=== PATIENT | female | born 1960 | race Caucasian/White ===

== ENCOUNTER 2017-12-09 20:27 | Emergency (ER) | payer SELFPAY ==
[~2017-12-09] VITALS: Ht 157.5 cm; Wt 79.8 kg
[2017-12-09] MEDS ORDERED: PROCHLORPERAZINE 5 MG/ML, 2ML IVPush ONE (21:00)
[2017-12-09] MEDS ORDERED: DIPHENHYDRAMINE 50 MG/ML, 1ML IVPush ONE (21:00)
[2017-12-09] MEDS ORDERED: SODIUM CHLORIDE 0.9% 1,000ML IVBOLUS ONE ×2 (21:00→22:00)
[2017-12-09] MEDS ORDERED: DIPHENHYDRAMINE 50 MG/ML, 1ML ONE (22:10)
[2017-12-09] MEDS ORDERED: PROCHLORPERAZINE 5 MG/ML, 2ML ONE (22:10)
[2017-12-09 22:27] LABS: BASOPHILS # (AUTO) 0.01 x10^3/uL (0-0.1); BASOPHILS % (AUTO) 0 % (0-1); EOSINOPHILS # (AUTO) 0.06 x10^3/uL (0-0.4); EOSINOPHILS % (AUTO) 1 % (1-7); LYMPHOCYTES # (AUTO) 1.65 x10^3/uL (1-3.4); LYMPHOCYTES % (AUTO) 21 % (22-44); MD NO; MEAN CORPUSCULAR HEMOGLOBIN 28.6 pg (27.0-34.8); MEAN CORPUSCULAR HGB CONC 33.5 g/dL (32.4-35.8); MEAN CORPUSCULAR VOLUME 85.4 fL (80-100); MONOCYTES # (AUTO) 0.47 x10^3/uL (0.2-0.8); MONOCYTES % (AUTO) 6 % (2-9); NEUTROPHILS # (AUTO) 5.74 x10^3/uL (1.8-6.8); NEUTROPHILS % (AUTO) 73 % (42-75); PLATELET COUNT 202 x10^3/uL (130-400); RED BLOOD COUNT 4.79 x10^6/uL (3.82-5.3); RED CELL DISTRIBUTION WIDTH 14.9 % (9.6-15.2)
[2017-12-09 22:38] LABS: ALBUMIN 3.7 g/dL (3.4-5.0); ANION GAP 8 mmol/L (5-15); CALCIUM 8.4 mg/dL (8.5-10.1); CHLORIDE 109 mmol/L (98-107); CREATININE 0.53 mg/dL (0.55-1.02)
[2017-12-09] MEDS ORDERED: LORazepam 1MG TABLET ONE (23:46)
[2017-12-09 23:59] VITALS: BP 118/60
[2017-12-10] MEDS ORDERED: LORazepam 1MG TABLET PO ONE
== END 2017-12-10 00:02 | disposition home or self-care (01) ==
LOC: ED 23:31
DX: R42 Dizziness and giddiness (principal); R51 Headache; G40.909 Epilepsy, unspecified, not intractable, without status epilepticus; E11.9 Type 2 diabetes mellitus without complications
CPT/HCPCS: 36415; 70450; 80048; 82040; 85025; 96361; 96374; 96375; 99285; J0780; J1200; J7030

== ENCOUNTER → 2018-04-29 | Outpatient (CLI) | payer OTHER | END | disposition home or self-care (01) | LOC: CFH 15:56 | PROVIDERS: ATTEND Nurse Practitioner Family | DX: G40.219 Localization-related (focal) (partial) symptomatic epilepsy and epileptic syndromes with complex partial seizures, intractable, without status epilepticus (principal) | CPT/HCPCS: 70551 ==

== ENCOUNTER 2018-12-11 10:08 | Inpatient (IN) | payer MEDICAID, OTHER ==
[~2018-12-11] VITALS: Ht 157.5 cm; Wt 86.2 kg
--- NOTE | 2018-12-11 10:24 | NUR ---
PT BIB [facility] FOR ABNORMAL POST-ICTAL STATE PER FAMILY AFTER SEIZURE THIS MORNING AT 0900. PER EMS, PT WAS GCS 8 AND EMOTIONAL AND INCONSOLABLE FOR APPROX 1.5 HOURS WHEN IV WAS ESTABLISHED AND 1 MG VERSED WAS ADMINISTERED. MEDICATION WAS INEFFECTIVE AND ANOTHER 1MG OF VERSED WAS ADMINISTERED. PT THEN BECAME DROWSY AND RESPONSIVE ONLY TO PAIN BUT ABLE TO ADEQUATELY PROTECT AIRWAY. PT ARRIVES IN SAME STATE. PT CONNECTED TO MONITORS. VSS. DR. GREENWOOD TO BS FOR ASSESSMENT. ORDERS RECEIVED. EKG COPLETE. AWAITING LAB DRAW.
[2018-12-11] MEDS ORDERED: ESCI10TA PO (10:41)
[2018-12-11] MEDS ORDERED: MELO15TA24 PO (10:41)
[2018-12-11] MEDS ORDERED: LAMO150T2 PO (10:41)
[2018-12-11] MEDS ORDERED: METFORMIN (10:41)
--- NOTE | 2018-12-11 10:47 | NUR ---
family at bs able to provide medications. med rec completed wtih family input. pt continues to guard when arm drop performed by edmd and continues to clench jaw when attempting to take temperature. vs remain stable. no requests at this time. awaiting orders.
--- NOTE | 2018-12-11 11:09 | NUR ---
pt mental state unchaged. vss. socks provided per family request. no other needs at this time.
--- NOTE | 2018-12-11 11:57 | NUR ---
pt mental state unchaged. vss. lab at for draw. no needs at this time. awaiting resutls.
[2018-12-11 12:33] LABS: ALBUMIN 3.9 g/dL (3.4-5.0); ANION GAP 8 mmol/L (5-15); CALCIUM 8.9 mg/dL (8.5-10.1); CHLORIDE 109 mmol/L (98-107); CREATININE 0.55 mg/dL (0.55-1.02)
--- NOTE | 2018-12-11 12:47 | NUR ---
pt mental state unchaged. vss. no needs at this time. ua collected via straight cath and sent to lab. awaiting results.
[2018-12-11 12:55] LABS: SALICYLATE LEVEL < 1.7 mg/dL (2.8-20.0)
[2018-12-11 12:57] LABS: BASOPHILS # (AUTO) 0.02 x10^3/uL (0-0.1); BASOPHILS % (AUTO) 0 % (0-1); EOSINOPHILS # (AUTO) 0.16 x10^3/uL (0-0.4); EOSINOPHILS % (AUTO) 2 % (1-7); LYMPHOCYTES # (AUTO) 2.65 x10^3/uL (1-3.4); LYMPHOCYTES % (AUTO) 36 % (22-44); MD NO; MEAN CORPUSCULAR HEMOGLOBIN 28.7 pg (27.0-34.8); MEAN CORPUSCULAR HGB CONC 32.6 g/dL (32.4-35.8); MEAN CORPUSCULAR VOLUME 88.1 fL (80-100); MEAN PLATELET VOLUME 8.9 fL (7.4-10.4); MONOCYTES # (AUTO) 0.55 x10^3/uL (0.2-0.8); MONOCYTES % (AUTO) 8 % (2-9); NEUTROPHILS # (AUTO) 3.95 x10^3/uL (1.8-6.8); NEUTROPHILS % (AUTO) 54 % (42-75); PLATELET COUNT 226 x10^3/uL (130-400); RED BLOOD COUNT 4.63 x10^6/uL (3.82-5.3); RED CELL DISTRIBUTION WIDTH 14.7 % (9.6-15.2)
[2018-12-11 13:15] LABS: AMPHETAMINE SCREEN, URINE Negative (Negative); BARBITURATE SCREEN, URINE Negative (Negative); BENZODIAZEPINE SCREEN, URINE Positive (Negative); CANNABINOID SCREEN, URINE Negative (Negative); COCAINE SCREEN, URINE Negative (Negative); METHADONE SCREEN, URINE Negative (Negative); OPIATE SCREEN, URINE Negative (Negative)
--- NOTE | 2018-12-11 13:47 | NUR ---
pt mental state unchaged. vss. no needs at this time. plan to admit. ct head complete. awaiting results and room assignment.
--- NOTE | 2018-12-11 14:02 | NUR ---
BREAK RN FOR PRIMARY RN LINDA. PT RESTING WITH EYES CLOSED, RESP REGULAR EVEN, UNLABORED. PULSE OX 92% ON RA. VSS. SR ON MONITOR. AWAITING ROOM ON FLOOR FOR ADMISSION TO HOSPITAL. FAMILY AT BEDSIDE. FAMILY MEMBERS PROVIDED WARM BLANKETS AND REFRESHMENTS PER REQUEST. CALL LIGHT IN REACH. FALL PRECAUTIONS IN PLACE.
--- NOTE | 2018-12-11 14:12 | NUR ---
BREAK RN. REPORT AND CARE BACK TO PRIMRY RODERICK MCKEON
--- NOTE | 2018-12-11 15:04 | NUR ---
report to henry iniguez. pt ready for transport.
[2018-12-11 15:33] VITALS: BP 115/79
[2018-12-11] MEDS ORDERED: ACETAMINOPHEN 325 MG TABLET ONE (16:47)
[2018-12-11] MEDS: ACETAMINOPHEN 325 MG TABLET PO PRN (16:50)
[2018-12-11] MEDS ORDERED: ENALAPRILAT 1.25 MG/ML, 2ML IVPush PRN (17:00)
[2018-12-11] MEDS ORDERED: hydrALAzine 20 MG/ML, 1ML IVPush PRN (17:00)
[2018-12-11] MEDS: SODIUM CHLORIDE 0.9% 1,000 ML IV SCH (17:20)
[2018-12-11] MEDS: HEPARIN 5,000 UNITS/ML, 1ML SQ SCH (17:20)
[2018-12-11 17:53] LABS: HEMOGLOBIN A1C 8.2 % (4.2-6.3)
[2018-12-11 19:46] VITALS: BP 107/62
[2018-12-12] MEDS: HEPARIN 5,000 UNITS/ML, 1ML SQ SCH ×2 (01:15→08:25)
[2018-12-12 01:43] VITALS: BP 121/75
[2018-12-12 06:13] LABS: BASOPHILS # (AUTO) 0.02 x10^3/uL (0-0.1); BASOPHILS % (AUTO) 0 % (0-1); EOSINOPHILS # (AUTO) 0.16 x10^3/uL (0-0.4); EOSINOPHILS % (AUTO) 3 % (1-7); LYMPHOCYTES # (AUTO) 2.49 x10^3/uL (1-3.4); LYMPHOCYTES % (AUTO) 41 % (22-44); MD NO; MEAN CORPUSCULAR HEMOGLOBIN 29.5 pg (27.0-34.8); MEAN CORPUSCULAR HGB CONC 33.3 g/dL (32.4-35.8); MEAN CORPUSCULAR VOLUME 88.3 fL (80-100); MEAN PLATELET VOLUME 9.3 fL (7.4-10.4); MONOCYTES % (AUTO) 8 % (2-9); NEUTROPHILS # (AUTO) 2.98 x10^3/uL (1.8-6.8); NEUTROPHILS % (AUTO) 48 % (42-75); PLATELET COUNT 221 x10^3/uL (130-400); RED BLOOD COUNT 4.55 x10^6/uL (3.82-5.3); RED CELL DISTRIBUTION WIDTH 14.4 % (9.6-15.2)
[2018-12-12 06:20] LABS: ANION GAP 5 mmol/L (5-15); CALCIUM 8.6 mg/dL (8.5-10.1); CHLORIDE 110 mmol/L (98-107); CREATININE 0.61 mg/dL (0.55-1.02)
[2018-12-12 07:14] VITALS: BP 115/73
[2018-12-12] MEDS: SODIUM CHLORIDE 0.9% 1,000 ML IV SCH (08:25)
[2018-12-12] MEDS: ACETAMINOPHEN 325 MG TABLET PO PRN (08:42)
[2018-12-12] MEDS ORDERED: LAMOTRIGINE 25 MG TABLET PO SCH (10:30)
[2018-12-12] MEDS ORDERED: MELOXICAM 15 MG TABLET PO SCH (10:30)
[2018-12-12] MEDS ORDERED: ESCITALOPRAM 10MG TABLET PO SCH (10:30)
[2018-12-12 12:32] VITALS: BP 102/65
== END 2018-12-12 16:35 | disposition home or self-care (01) | DRG 101 ==
LOC: ED 12:45 → 4WST 14:24 → DCLOUNGE 12-12 16:23
PROVIDERS: ADMIT Internal Medicine; ATTEND Internal Medicine
DX: G40.909 Epilepsy, unspecified, not intractable, without status epilepticus (principal); E11.9 Type 2 diabetes mellitus without complications; F43.0 Acute stress reaction; F44.4 Conversion disorder with motor symptom or deficit; F43.10 Post-traumatic stress disorder, unspecified; I10 Essential (primary) hypertension
CPT/HCPCS: 36415; 70450; 80048; 80307; 82040; 82962; 83036; 83605; 83735; 84100; 85025; 93005; G0378; J1644; J7030

== ENCOUNTER 2019-01-06 10:08 | Emergency (ER) | payer MEDICAID ==
[~2019-01-06] VITALS: Ht 157.5 cm; Wt 84.6 kg
[2019-01-06 11:57] VITALS: BP 107/68
== END 2019-01-06 12:00 | disposition home or self-care (01) ==
LOC: ED 11:43
DX: M26.622 Arthralgia of left temporomandibular joint (principal); E11.9 Type 2 diabetes mellitus without complications; F32.9 Major depressive disorder, single episode, unspecified; F41.1 Generalized anxiety disorder
CPT/HCPCS: 70100; 99283

== ENCOUNTER 2019-08-11 09:25 | Emergency (ER) | payer MEDICAID ==
[~2019-08-11] VITALS: Ht 152.4 cm; Wt 83.7 kg
[~2019-08-11 09:25] MED LIST: ESCI10TA PO; LAMO150T4 PO; MELO15TA24 PO; METFORMIN
[2019-08-11 10:03] VITALS: BP 106/67
--- NOTE | 2019-08-11 10:52 | NUR ---
NA from kevin
--- NOTE | 2019-08-11 11:04 | NUR ---
to rm 5 via w/c
--- NOTE | 2019-08-11 11:18 | NUR ---
right foot in boot with increasing pain since intial injury when she fell
== END 2019-08-11 11:33 ==
LOC: ED 11:27
DX: S92.114A Nondisplaced fracture of neck of right talus, initial encounter for closed fracture (principal); E11.9 Type 2 diabetes mellitus without complications; G40.909 Epilepsy, unspecified, not intractable, without status epilepticus; W18.30XA Fall on same level, unspecified, initial encounter; Y93.89 Activity, other specified; Y92.009 Unspecified place in unspecified non-institutional (private) residence as the place of occurrence of the external cause; Y99.8 Other external cause status
CPT/HCPCS: 99284

== ENCOUNTER 2019-08-16 16:47 | Emergency (ER) | payer MEDICAID ==
[~2019-08-16] VITALS: Ht 154.9 cm; Wt 83.6 kg
--- NOTE | 2019-08-16 17:01 | NUR ---
Pt ambulatory to bathroom and back to bed without difficulty.
--- NOTE | 2019-08-16 17:05 | NUR ---
Dr. Stuart at bedside to evaluate pt. Pt c/o R flank pain x3 hours with N/V. Pt extremely restless, tearful, appears in a lot of pain. Pt placed in gown and positioned for comfort in bed. Continuous oxygen and BP Monitors applied, all safety measures observed. Pt's daughter at bedside, supportive.
[2019-08-16] MEDS ORDERED: SODIUM CHLORIDE 0.9% 1,000 ML IV ONE (17:08)
[2019-08-16] MEDS ORDERED: HYDROmorphone 1 MG/ML, 1ML INJ ONE ×2 (17:09→17:52)
[2019-08-16] MEDS ORDERED: ONDANSETRON 2MG/ML, 2ML ONE ×3 (17:10→19:27)
[2019-08-16] MEDS: HYDROmorphone 2 MG/ML, 1ML IVPush PRN ×2 (17:16→17:54)
[2019-08-16] MEDS ORDERED: METF500T17 PO (17:24)
--- NOTE | 2019-08-16 17:25 | NUR ---
Pt medicated per MAR for pain and nausea. Provided warm blanket for comfort. Pt denies other needs.
--- NOTE | 2019-08-16 17:29 | NUR ---
Pt to CT via [facility].
[2019-08-16] MEDS ORDERED: ONDANSETRON 2MG/ML, 2ML IVPush ONE ×2 (17:30→19:30)
[2019-08-16] MEDS ORDERED: SODIUM CHLORIDE FLUSH 10ML SYR IVF ONE (17:30)
[2019-08-16 17:31] LABS: BASOPHILS # (AUTO) 0.07 x10^3/uL (0-0.1); BASOPHILS % (AUTO) 1 % (0-1); EOSINOPHILS # (AUTO) 0.25 x10^3/uL (0-0.4); EOSINOPHILS % (AUTO) 2 % (1-7); LYMPHOCYTES % (AUTO) 34 % (22-44); MD NO; MEAN CORPUSCULAR HEMOGLOBIN 28.5 pg (27.0-34.8); MEAN CORPUSCULAR HGB CONC 33.1 g/dL (32.4-35.8); MEAN CORPUSCULAR VOLUME 85.9 fL (80-100); MEAN PLATELET VOLUME 9.1 fL (7.4-10.4); MONOCYTES # (AUTO) 0.77 x10^3/uL (0.2-0.8); MONOCYTES % (AUTO) 7 % (2-9); NEUTROPHILS # (AUTO) 6.62 x10^3/uL (1.8-6.8); NEUTROPHILS % (AUTO) 57 % (42-75); PLATELET COUNT 289 x10^3/uL (130-400); RED BLOOD COUNT 4.92 x10^6/uL (3.82-5.3); RED CELL DISTRIBUTION WIDTH 14.4 % (9.6-15.2)
[2019-08-16 17:41] LABS: ANION GAP 8 mmol/L (5-15); CALCIUM 9.3 mg/dL (8.5-10.1); CHLORIDE 106 mmol/L (98-107); CREATININE 0.86 mg/dL (0.55-1.02)
[2019-08-16 17:49] LABS: ALANINE AMINOTRANSFERASE 41 U/L (12-78); ALKALINE PHOSPHATASE 141 U/L (45-117); BILIRUBIN,TOTAL 0.2 mg/dL (0.2-1.0); TOTAL PROTEIN 8.9 g/dL (6.4-8.2)
--- NOTE | 2019-08-16 17:54 | NUR ---
Pt back from CT, medicated for continued 5/10 R flank pain per MAR. Pt denies other needs.
[2019-08-16] MEDS ORDERED: KETOROLAC 30 MG/1 ML IVPush ONE (18:00)
[2019-08-16] MEDS ORDERED: KETOROLAC 30 MG/1 ML ONE (18:02)
--- NOTE | 2019-08-16 18:03 | NUR ---
Pt medicated per AUG. Dr. Stuart at bedside to discuss POC with pt.
[2019-08-16 18:04] LABS: MICROSCOPIC INDICATED
[2019-08-16 18:05] LABS: CULTURE INDICATED? YES
[2019-08-16] MEDS ORDERED: CEFTRIAXONE PMX 1GM/50ML 50 ML IV ONE (18:30)
--- NOTE | 2019-08-16 18:35 | NUR ---
Pt with continued nausea and one episode emesis. Dr. Stuart at bedside to speak with pt. Orders received for 4mg Zofran IVP. Pt medicated per order. Pt straight cathed per order, tolerated well. Urine sample obtained, labeled at bedside, walked to lab. Pt positioned for comfort in bed, denies other needs.
--- NOTE | 2019-08-16 18:36 | NUR ---
Pt states R flank pain improved after medications, 3/10.
[2019-08-16] MEDS ORDERED: CEFTRIAXONE PMX 1GM/50ML 50 ML ONE (18:41)
--- NOTE | 2019-08-16 19:00 | NUR ---
Received reportand assumed patient care. Patient resting with call light at bedside. Awaiting urinalysis.
[2019-08-16 19:01] LABS: MICROSCOPIC AUTO
[2019-08-16 19:06] LABS: CULTURE INDICATED? NO
[2019-08-16 20:11] VITALS: BP 102/47
== END 2019-08-16 20:23 | disposition home or self-care (01) ==
LOC: ED 20:00
DX: N20.1 Calculus of ureter (principal); N23 Unspecified renal colic; N39.0 Urinary tract infection, site not specified; E11.9 Type 2 diabetes mellitus without complications
CPT/HCPCS: 36415; 51701; 74176; 80053; 81001; 85025; 87086; 96365; 96375; 96376; 99285; J0696; J1170; J1885; J2405; J7030; 96374; P9612

== ENCOUNTER 2019-09-13 17:11 | Emergency (ER) | payer MEDICAID ==
[~2019-09-13] VITALS: Ht 154.9 cm; Wt 82.4 kg
[~2019-09-13 17:11] MED LIST changes: +METF500T17 PO
--- NOTE | 2019-09-13 17:43 | NUR ---
GROUNDS CARETAKER: PT TO ROOM FROM LOBBY
--- NOTE | 2019-09-13 17:53 | NUR ---
pt voided prior to coming back to room. given ua cup. call patel in reach. as
--- NOTE | 2019-09-13 18:17 | NUR ---
brent in room for eval. as
[2019-09-13] MEDS ORDERED: MORPHINE SULFATE 4 MG/ML, 1ML IVPush PRN (18:30)
[2019-09-13] MEDS ORDERED: ONDANSETRON 2MG/ML, 2ML IVPush ONE (18:30)
[2019-09-13] MEDS ORDERED: MORPHINE SULFATE 4 MG/ML, 1ML ONE (18:31)
[2019-09-13] MEDS ORDERED: ONDANSETRON 2MG/ML, 2ML ONE (18:31)
[2019-09-13 18:34] LABS: BASOPHILS # (AUTO) 0.04 x10^3/uL (0-0.1); BASOPHILS % (AUTO) 0 % (0-1); EOSINOPHILS # (AUTO) 0.09 x10^3/uL (0-0.4); EOSINOPHILS % (AUTO) 1 % (1-7); LYMPHOCYTES # (AUTO) 2.88 x10^3/uL (1-3.4); LYMPHOCYTES % (AUTO) 23 % (22-44); MD NO; MEAN CORPUSCULAR HEMOGLOBIN 28.7 pg (27.0-34.8); MEAN CORPUSCULAR HGB CONC 33.6 g/dL (32.4-35.8); MEAN CORPUSCULAR VOLUME 85.5 fL (80-100); MEAN PLATELET VOLUME 9.1 fL (7.4-10.4); MONOCYTES # (AUTO) 0.72 x10^3/uL (0.2-0.8); MONOCYTES % (AUTO) 6 % (2-9); NEUTROPHILS % (AUTO) 70 % (42-75); PLATELET COUNT 260 x10^3/uL (130-400); RED BLOOD COUNT 4.53 x10^6/uL (3.82-5.3); RED CELL DISTRIBUTION WIDTH 14.4 % (9.6-15.2)
--- NOTE | 2019-09-13 18:41 | NUR ---
piv est ua sent. blood i n urine. to ct. meds per aug. as
[2019-09-13 18:42] LABS: ALANINE AMINOTRANSFERASE 31 U/L (12-78); ALBUMIN 3.8 g/dL (3.4-5.0); ANION GAP 9 mmol/L (5-15); CALCIUM 9.2 mg/dL (8.5-10.1); CHLORIDE 108 mmol/L (98-107); CREATININE 0.79 mg/dL (0.55-1.02)
[2019-09-13 18:45] LABS: ALKALINE PHOSPHATASE 128 U/L (45-117); BILIRUBIN,TOTAL 0.4 mg/dL (0.2-1.0); TOTAL PROTEIN 8.2 g/dL (6.4-8.2)
[2019-09-13 18:53] LABS: CULTURE INDICATED? YES; MICROSCOPIC INDICATED
--- NOTE | 2019-09-13 19:41 | NUR ---
given water per md. [facility]. as
[2019-09-13 19:57] VITALS: BP 132/68
== END 2019-09-13 20:00 | disposition home or self-care (01) ==
LOC: ED 18:29
DX: N13.2 Hydronephrosis with renal and ureteral calculous obstruction (principal); I10 Essential (primary) hypertension; E11.9 Type 2 diabetes mellitus without complications; Z87.442 Personal history of urinary calculi
CPT/HCPCS: 36415; 76770; 80053; 81001; 83690; 85025; 87077; 87086; 96374; 96375; 99284; J2270; J2405; 87186